=== PATIENT | male | born 1995 | race African-American/Black ===

== ENCOUNTER 2021-09-11 01:19 | Emergency (ER) | payer OTHER | END 2021-09-11 04:50 | LOC: NAV ERS 01:19 | DX: S09.90XA Unspecified injury of head, initial encounter (principal); S02.31XA Fracture of orbital floor, right side, initial encounter for closed fracture; S00.83XA Contusion of other part of head, initial encounter; Z87.891 Personal history of nicotine dependence; W50.0XXA Accidental hit or strike by another person, initial encounter; Y92.149 Unspecified place in prison as the place of occurrence of the external cause | CPT/HCPCS: 70450; 70486; 72125 ==